=== PATIENT | female | born 2005 | race African-American/Black ===

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

== ENCOUNTER 2023-07-28 00:25 | Emergency (ER) | payer MEDICAID ==
[~2023-07-28] VITALS: Ht 177.8 cm; Wt 107.0 kg
[2023-07-28 00:55] VITALS: O2SAT 100
[2023-07-28 00:56] LABS: BASOPHILS % 0.4 % (0.0-2.0); EOSINOPHILS % 1.7 % (0.0-5.0); HEMATOCRIT. 29.1 % (36.0-48.0); HEMOGLOBIN. 9.9 g/dL (12.0-16.0); LYMPHOCYTES % 27.9 % (20.0-50.0); MEAN CORPUSCULAR HEMOGLOBIN 29.8 pg (28.0-32.0); MEAN CORPUSCULAR VOLUME 87.8 fL (81.0-99.0); MEAN PLATELET VOLUME 8.3 fl (7.4-10.4); MONOCYTES % 8.7 % (2.0-8.0); NEUTROPHILS % 61.3 % (40.0-76.0); PLATELET 214 x1000/uL (130-400); RED BLOOD CELL COUNT 3.32 mill/uL (4.2-5.4); RED CELL DISTRIBUTION WIDTH 13.9 % (11.6-14.6); WHITE BLOOD COUNT 6.1 x1000/uL (4.5-11.0)
[2023-07-28] MEDS: ACETAMINOPHEN 325MG TABLET PO PRN (01:02)
[2023-07-28 02:07] LABS: ALANINE AMINOTRANSFERASE 10 IU/L (10-49); ASPARTATE AMINOTRANSFERASE 12 IU/L (<34); B-HCG QUANTITATIVE 21253 mIU/mL (<3); BILIRUBIN TOTAL 0.4 mg/dL (0.1-1.0); CALCIUM 8.6 mg/dL (8.7-10.4); CARBON DIOXIDE 22 mEq/L (21-32); CHLORIDE 108 mEq/L (98-107); CREATININE 0.6 mg/dL (0.6-1.0); GLUCOSE 82 mg/dL (70-105); POTASSIUM 3.7 mEq/L (3.5-5.1); SODIUM 137 mEq/L (136-145); UREA NITROGEN BLOOD 7 mg/dL (9-23)
[2023-07-28] MEDS: MORPHINE SULFATE 4 MG/ML INJ (FOR IV/IM USE) IV ONE (02:56)
[2023-07-28] MEDS: TERBUTALINE SULFATE 1MG/ML VIAL SUBCUT NR (04:45)
[2023-07-28] MEDS: MAGNESIUM 2G PREMIX 50ML IV NR (04:54)
[2023-07-28 05:15] VITALS: BP 114/57; PULSE 100; RESP 22; TEMP 98.4
[2023-07-28] MEDS ORDERED: TERBUTALINE SULFATE 1MG/ML VIAL SUBCUT NR (05:15)
[2023-07-28] MEDS ORDERED: LACTATED RINGERS 1,000 ML IV SCH (05:15)
== END 2023-07-28 05:58 | disposition short-term general hospital (02) ==
LOC: ER 00:25 → EDUNIT# 00:25 → ER 05:58
DX: O60.02 Preterm labor without delivery, second trimester (principal); O32.1XX0 Maternal care for breech presentation, not applicable or unspecified; Z3A.22 22 weeks gestation of pregnancy
CPT/HCPCS: 99291; 96365; 76805; 96375; 80053; 84702; 85025; 86850; 86900; 86901; 36415; 99292; 96372; J3475; J3105; J2270